=== PATIENT | male | born 1975 | race Caucasian/White ===

== ENCOUNTER 2017-04-17 19:49 | Emergency (ER) | payer OTHER ==
[2017-04-17] MEDS ORDERED: MOTRIN 600 MG ONE (20:16)
[2017-04-17] MEDS: MOTRIN 600 MG PO ONE (20:17)
--- NOTE | 2017-04-17 20:17 | ERPHSYRPT ---
- History of Present Illness Time Seen by Provider: 04/17/17 20:01 Source: patient Exam Limitations: no limitations Physician History: ABOUT 14 HOURS AGO AT PT'S RESIDENCE PT SLIPPED ON HIS ICY DECK AND FELL WITH RESULTANT RIGHT RIB PAIN AND RIGHT FOREARM PAIN; DENIES LOC, NAUSEA, VOMITING, ABDOMINAL PAIN, TINGLING/NUMBNESS, WEAKNESS. Allergies/Adverse Reactions: No Known Drug Allergies Allergy (Verified 04/17/17 20:13) Home Medications: Amlodipine Besylate 10 mg [Norvasc 10 MG] 10 mg PO DAILY 04/24/15 [History] Lamotrigine [Lamictal] 100 mg PO BID 04/24/15 [History] Lisinopril 40 mg PO DAILY 04/24/15 [History] Alprazolam 1 mg [Xanax 1 mg] 1 mg PO BID 04/17/17 [History] Hx Tetanus, Diphtheria Vaccination/Date Given: Yes (2013) Hx Influenza Vaccination/Date Given: No Hx Pneumococcal Vaccination/Date Given: No - Review of Systems Cardiac: Other (RIGHT RIB PAIN) Musculoskeletal: Other (RIGHT FOREARM PAIN) All Other Systems: Reviewed and Negative - Past Medical History Pertinent Past Medical History: Yes Neurological History: Seizures ENT History: No Pertinent History Cardiac History: No Pertinent History, Hypertension Respiratory History: No Pertinent History Endocrine Medical History: No Pertinent History Musculoskeletal History: Degenerative Disk Disease GI Medical History: Hernia History: No Pertinent History Psycho-Social History: Anxiety Male Reproductive Disorders: No Pertinent History Other Medical History: CHRONIC BACK PAIN - Past Surgical History Past Surgical History: Yes Neuro Surgical History: No Pertinent History Cardiac: No Pertinent History Respiratory: No Pertinent History Gastrointestinal: Hernia Repair Genitourinary: No Pertinent History Musculoskeletal: No Pertinent History Male Surgical History: No Pertinent History - Social History Smoking Status: Current some day smoker How long have you smoked: YRS Exposure to second hand smoke: Yes Alcohol Use: Socially Drug Use: none Patient Lives Alone: Yes Significant Family History: no pertinent family hx - Nursing Vital Signs Nursing Vital Signs: Initial Vital Signs Temperature 97.8 F 04/17/17 20:01 Pulse Rate 104 H 04/17/17 20:01 Respiratory Rate 18 04/17/17 20:01 Blood Pressure 139/90 04/17/17 20:01 O2 Sat by Pulse Oximetry 96 04/17/17 20:01 Pain Scale Pain Intensity 9 - [place] Coma Score Best Eye Response (Loulou): (4) open spontaneously Best Verbal Response ([place]): (5) oriented Best Motor Response ([place]): (6) obeys commands [place] Total: 15 - Physical Exam General Appearance: alert Head Injury: no evidence of injury Eye Exam: PERRL/EOMI ENT Exam: airway nml, nml ext.inspection Neck Exam: trachea midline, No tenderness Respiratory/Chest Exam: other (MILD RIGHT 9TH POSTERIOR RIB TENDERNESS WITHOUT CREPITUS OR BRUISING) Cardiovascular Exam: normal heart sounds Gastrointestinal Exam: soft, normal bowel sounds, No tenderness Back Exam: normal range of motion, No vertebral tenderness Extremity Exam: swelling (MILD TENDERNESS AND EDEMA OVER A ~ 3 CM DIAMETER ABRASION ON THE LATERAL ASPECT OF THE RIGHT FOREARM. FULL ROM OF ALL UPPER EXTREMITIES WITH GOOD CAPILLARY REFILL, SENSATION AND ROM OF ALL DIGITS OF BOTH HANDS.) Neurologic Exam: alert, cooperative Procedures - Splinting Location of Splint: Right, Forearm Type of Splint: Orthoglass Short Arm Splint Splint Applied By: ED Nurse Pre-Proc Neuro Vasc Exam: normal Post-Proc Neuro Vasc Exam: neurovascular intact, good alignment - Course Nursing assessment & vital signs reviewed: Yes - Radiology Exams Right Ribs X-ray Interpretation: Interpreted by me, No Fracture Right Forearm X-ray Interpretation: Interpreted by me (MID-SHAFT ULNAR FRACTURE) Ordered Tests: Active Orders 24 hr Category Date Time Status Sling Application STAT Care 04/17/17 20:09 Active Splint STAT Care 04/17/17 21:44 Active FOREARM Stat Exams 04/17/17 20:10 Ordered RIBS UNILATERAL Stat Exams 04/17/17 20:10 Ordered Medication Summary Discontinued Medications Generic Name Dose Route Start Last Admin Trade Name Freq PRN Reason Stop Dose Admin Hydrocodone Bitart/Acetaminophen 2 tab 04/17/17 21:43 Browns 5/325 Mg PO 04/17/17 21:44 STAT ONE Hydrocodone Bitart/Acetaminophen 2 tab 04/17/17 21:44 Browns 5/325 Mg PO 04/17/17 21:45 SENT HOME W/ PATIENT ONE Hydrocodone Bitart/Acetaminophen Confirm 04/17/17 21:50 Browns 5/325 Mg Administered 04/17/17 21:51 Dose 2 tab .ROUTE .STK-MED ONE Hydrocodone Bitart/Acetaminophen Confirm 04/17/17 21:50 Browns 5/325 Mg Administered 04/17/17 21:51 Dose 2 tab .ROUTE .STK-MED ONE Ibuprofen 600 mg 04/17/17 20:09 04/17/17 20:17 Motrin 600 Mg PO 04/17/17 20:10 600 mg STAT ONE Administration Ibuprofen Confirm 04/17/17 20:16 Motrin 600 Mg Administered 04/17/17 20:17 Dose 600 mg .ROUTE .STK-MED ONE - Progress Discussed with : Darshan ([address] RIGHT FOREARM IN SPLINT. PT TO GO TO OFFICE TOMORROW AT 1 PM.) - Departure Time of Disposition: 22:12 Departure Disposition: Home Clinical Impression: MID-SHAFT FRACTURE OF THE RIGHT ULNA, RIGHT MID BACK PAIN Condition: Stable Critical Care Time: No Referrals: JUAN LUIS ARCHULETA [Primary Care Provider] - Instructions: Forearm Fracture (DC) Additional Instructions: FOLLOW UP WITH DR HAILE(ORTHOPEDIC SURGEON) TOMORROW AT 1 PM. CALL HIS OFFICE AT 9 AM TOMORROW TO ARRANGE THE 1 PM APPOINTMENT([phone]). ELEVATE RIGHT ARM ABOVE HEART LEVEL AND KEEP SPLINT ON RIGHT FOREARM UNTIL DR HAILE IS SEEN TOMORROW. WEAR RIGHT ARM SLING FOR COMFORT.
[2017-04-17] MEDS ORDERED: NORCO 5/325 MG ONE ×2 (21:50)
[2017-04-17] MEDS: NORCO 5/325 MG PO ONE ×2 (22:19→22:20)
[2017-04-17 22:22] VITALS: BP 120/83; PULSE 92; O2SAT 95
--- NOTE | 2017-04-18 09:04 | XRAY ---
Indication: Pain following fall. Comparison: September 24, 2013. 2 views of the right ribs demonstrates old 09/10/10 rib fractures. No other bony, articular, or soft tissue abnormalities.
--- NOTE | 2017-04-18 09:06 | XRAY ---
Indication: Pain following fall. Comparison: None 2 views of the right forearm demonstrates mild displaced fracture involving the mid to distal shaft of the ulna with adjacent soft tissue swelling. No other bony, articular, or soft tissue abnormalities.
== END 2017-04-17 22:23 | disposition home or self-care (01) ==
LOC: ED 19:49
PROC: 2W3CX1Z Immobilization of Right Lower Arm using Splint (ICD-10-PCS; principal; 2017-04-17)
DX: S52.201A Unspecified fracture of shaft of right ulna, initial encounter for closed fracture (principal); W00.0XXA Fall on same level due to ice and snow, initial encounter; Y93.29 Activity, other involving ice and snow; Y92.89 Other specified places as the place of occurrence of the external cause; R07.81 Pleurodynia; M79.631 Pain in right forearm; G40.909 Epilepsy, unspecified, not intractable, without status epilepticus; I10 Essential (primary) hypertension; F41.9 Anxiety disorder, unspecified; Z72.0 Tobacco use
CPT/HCPCS: 29126; 71100; 73090; 99283; A9270-GY

== ENCOUNTER 2017-06-21 19:58 | Observation (INO) | payer OTHER ==
[2017-06-21] MEDS ORDERED: Sodium Chloride 0.9% 1000 ML 1,000 ML IV STA ×2 (20:42→21:57)
[2017-06-21] MEDS ORDERED: Keppra 500 MG/5 ML*** 500 MG in D5w 100ML Mini Bag 100 ML 100 ML IV ONE (20:46)
[2017-06-21] MEDS ORDERED: Sodium Chloride 0.9% 1000 ML 1,000 ML ONE ×2 (20:46→22:01)
--- NOTE | 2017-06-21 20:46 | ERPHSYRPT ---
- History of Present Illness Time Seen by Provider: 06/21/17 20:22 Source: patient, family Exam Limitations: clinical condition Patient Subjective Stated Complaint: has not been able to get a hold of Dr Sexton. family states he has had seizures today X2. arrived with splint long arm + radial pulse present. family upset because they could not get a hold of Dr Sexton. Triage Nursing Assessment: alert with muffled speech. sig other states has had 2 seizures tonight starting at 1500. has hx of seizures. has a fractured right arm that he has been dealing with an infection. splint in place. + pedal pulse on palpation. good movement and sensation to the right hand,. states the hand was swollen yesterday but improved after antibiotics. they are here because they have not been able to get a hold of Dr Sexton and was told that he didnt need to be admitted from [facility] last night. states there was drainage from the site last night. Physician History: PATIENT WITH A HISTORY OF SEIZURE DISORDER, HAD PROLONGED SEIZURE TODAY. DENIES TRAUMA OR INJURY. SUSTAINED FRACTURE TO RIGHT ULNA ON 04/17/2017, PLACEMENT OF HARDWARE, AND ON 06/13/2017 REQUIRED REMOVAL OR HARDWARE DUE TO INFECTION. PATIENT COMPLAINS OF PERSISTENT PAIN. DENIES FEVER OR CHILLS. Timing/Duration: day(s) Severity: moderate Character of Deficits: impaired speech Deficits: no difficulties Baseline/Normal Cognition: alert oriented x 3 Current Cognition: poor alertness Baseline Gait: walks w/o assistance Associated Symptoms: slurred speech Allergies/Adverse Reactions: No Known Drug Allergies Allergy (Verified 06/21/17 20:42) Home Medications: Amlodipine Besylate 10 mg [Norvasc 10 MG] 10 mg PO DAILY 04/24/15 [History] Lamotrigine [Lamictal] 100 mg PO BID 04/24/15 [History] Lisinopril 40 mg PO DAILY 04/24/15 [History] Alprazolam 1 mg [Xanax 1 mg] 1 mg PO BID 04/17/17 [History] Hx Tetanus, Diphtheria Vaccination/Date Given: Yes (2013) Hx Influenza Vaccination/Date Given: No Hx Pneumococcal Vaccination/Date Given: No Immunizations Up to Date: Yes - Review of Systems Constitutional: No Fever, No Chills Eyes: No Symptoms Ears, Nose, & Throat: No Symptoms Respiratory: No Symptoms, No Cough, No Dyspnea Cardiac: No Symptoms, No Chest Pain, No Edema, No Syncope Abdominal/Gastrointestinal: No Symptoms, No Abdominal Pain, No Nausea, No Vomiting, No Diarrhea Genitourinary Symptoms: No Symptoms, No Dysuria Musculoskeletal: No Back Pain, No Neck Pain Skin: No Rash Neurological: Seizure, No Dizziness, No Focal Weakness, No Sensory Changes Psychological: No Symptoms Endocrine: No Symptoms All Other Systems: Reviewed and Negative - Past Medical History Pertinent Past Medical History: Yes Neurological History: Seizures ENT History: No Pertinent History Cardiac History: No Pertinent History, Hypertension Respiratory History: No Pertinent History Endocrine Medical History: No Pertinent History Musculoskeletal History: Degenerative Disk Disease GI Medical History: Hernia History: No Pertinent History Psycho-Social History: Anxiety Male Reproductive Disorders: No Pertinent History Other Medical History: CHRONIC BACK PAIN - Past Surgical History Past Surgical History: Yes Neuro Surgical History: No Pertinent History Cardiac: No Pertinent History Respiratory: No Pertinent History Gastrointestinal: Hernia Repair Genitourinary: No Pertinent History Musculoskeletal: No Pertinent History Male Surgical History: No Pertinent History Other Surgical History: surgical repain of fx to right arm - Social History Smoking Status: Never smoker How long have you smoked: YRS Exposure to second hand smoke: No Alcohol Use: Socially Drug Use: none Patient Lives Alone: No Significant Family History: no pertinent family hx - Nursing Vital Signs Nursing Vital Signs: Initial Vital Signs Temperature 97.5 F 06/21/17 20:10 Pulse Rate 85 06/21/17 20:10 Respiratory Rate 18 06/21/17 20:10 Blood Pressure 163/91 06/21/17 20:10 O2 Sat by Pulse Oximetry 98 06/21/17 20:10 Pain Scale Pain Intensity 0 - [place] Coma Scale Best Eye Response ([place]ou): (4) open spontaneously Best Verbal Response ([place]): (5) oriented Best Motor Response ([place]): (6) obeys commands [place] Total: 15 - Physical Exam General Appearance: lethargy, other (GARBLED SPEECH, APPROPRIATE AND ORIENTED X 3 ) Eye Exam: bilateral eye: normal inspection, PERRL, EOMI Ears, Nose, Throat Exam: normal ENT inspection, moist mucous membranes Neck Exam: normal inspection, non-tender, supple Respiratory: normal breath sounds, lungs clear, airway intact, No respiratory distress Gastrointestinal: soft, normal bowel sounds, No tenderness, No distention Back Exam: normal inspection, normal range of motion Extremity Exam: limited range of motion, swelling (HEALING INCISIONAL WOUND RIGHT DISTAL 3RD FOREARM, WITH SWELLING, ERYTHEMA AND TENDERNESS, RIGHT RADIAL PULSE 2 +), tenderness heavy machinery assembler Exam: normal hearing (GARBLED SPEECH) Coordination/Gait: normal finger to nose, normal gait Motor/Sensory: no motor deficit, no sensory deficit, no pronator drift DTR: bicep (R): 2+, bicep (L): 2+, tricep (R): 2+, tricep (L): 2+, knee (R): 2+ , knee (L): 2+, ankle (R): 2+, ankle (L): 2+ Skin Exam: other (ERYTHEMA DISTAL RIGHT FOREARM) SpO2 Interpretation: normal SpO2: 98 Oxygen Delivery: Room Air - CT Exams Head CT Interpretation: Discussed w/radiologist (STABLE NEGATIVE HEAD CT) Ordered Tests: Active Orders 24 hr Category Date Time Status Statistician Applied STAT Care 06/21/17 21:58 Active IV Insertion STAT Care 06/21/17 20:42 Active FOREARM Stat Exams 06/21/17 20:56 Taken HEAD WITHOUT CONTRAST [CT] Stat Exams 06/21/17 20:44 Taken BLOOD CULTURE Stat Lab 06/21/17 21:00 Received BMP Stat Lab 06/21/17 20:50 Completed CBC W DIFF Stat Lab 06/21/17 20:50 Completed UA W/RFX UR CULTURE Stat Lab 06/21/17 20:44 Ordered Urine Triage Profile Stat Lab 06/21/17 20:44 Ordered Transfer Order Routine Transfer 06/21/17 Ordered Medication Summary Generic Name Dose Route Start Last Admin Trade Name Freq PRN Reason Stop Dose Admin Vancomycin HCl 1 gm in 250 mls @ 167 mls/hr 06/21/17 21:44 06/21/17 22:00 Vancomycin 1gm/ Ns 250ml IV 06/21/17 23:13 167 mls/hr STAT ONE Administration Sodium Chloride 1,000 mls @ 999 mls/hr 06/21/17 21:57 06/21/17 22:02 Sodium Chloride 0.9% 1000 Ml IV 06/21/17 22:57 999 mls/hr .Q1H1M STA Administration Discontinued Medications Generic Name Dose Route Start Last Admin Trade Name Freq PRN Reason Stop Dose Admin Sodium Chloride 1,000 mls @ 999 mls/hr 06/21/17 20:42 06/21/17 20:48 Sodium Chloride 0.9% 1000 Ml IV 06/21/17 21:42 999 mls/hr .Q1H1M STA Administration Sodium Chloride Confirm 06/21/17 20:46 Sodium Chloride 0.9% 1000 Ml Administered 06/21/17 20:47 Dose 1,000 mls @ ud .ROUTE .STK-MED ONE Levetiracetam 500 mg/ Dextrose 105 mls @ 400 mls/hr 06/21/17 20:46 06/21/17 21:02 IV 06/21/17 21:01 400 mls/hr STAT ONE Administration Dextrose Confirm 06/21/17 20:59 D5w 100ml Mini Bag 100 Ml Administered 06/21/17 21:00 Dose 100 mls @ ud IV .STK-MED ONE Vancomycin HCl Confirm 06/21/17 21:56 Vancomycin 1gm/ Ns 250ml Administered 06/21/17 21:57 Dose 250 mls @ ud IV .STK-MED ONE Sodium Chloride Confirm 06/21/17 22:01 Sodium Chloride 0.9% 1000 Ml Administered 06/21/17 22:02 Dose 1,000 mls @ ud .ROUTE .STK-MED ONE Levetiracetam Confirm 06/21/17 20:58 Keppra 500 Mg/5 Ml Administered 06/21/17 20:59 Dose 500 mg .ROUTE .STK-MED ONE Lab/Rad Data: Laboratory Result Diagrams 06/21/17 20:50 06/21/17 20:50 Laboratory Results 06/21/17 06/21/17 Range/Units 20:50 20:50 WBC 5.2 (4.0-10.5) K/mm3 RBC 4.61 (4.1-5.6) M/mm3 Hgb 13.6 (12.5-18.0) gm/dl Hct 41.8 L (42-50) % MCV 90.7 (78-100) fl MCH 29.5 (26-32) pg MCHC 32.5 (32-36) g/dl RDW 13.5 (11.5-14.0) % Plt Count 285 (150-450) K/mm3 MPV 10.7 H (6-9.5) fl Gran % 55.9 (36.0-66.0) % Eos # (Auto) 0.69 H (0-0.5) Absolute Lymphs (auto) 1.07 (1.0-4.6) Absolute Monos (auto) 0.49 (0.0-1.3) Lymphocytes % 20.6 L (24.0-44.0) % Monocytes % 9.4 (0.0-12.0) % Eosinophils % 13.3 H (0.00-5.0) % Basophils % 0.8 (0.0-0.4) % Absolute Granulocytes 2.90 (1.4-6.9) Basophils # 0.04 (0-0.4) Sodium 139 (137-145) mmol/L Potassium 4.4 (3.5-5.1) mmol/L Chloride 99 (98-107) mmol/L Carbon Dioxide 31 H (22-30) mmol/L Anion Gap 13.4 (5-15) MEQ/L BUN 12 (9-20) mg/dL Creatinine 0.86 (0.66-1.25) mg/dL Estimated GFR > 60.0 ML/MIN Glucose 91 (74-106) mg/dL Calcium 9.6 (8.4-10.2) mg/dL - Progress Progress Note: 06/21/17 21:43 IV BOLUS NORMAL SALINE 1 LITER/HR X 2 Discussed with DrBarb: Mannie (DISCUSSED WITH DR HARRINGTON AT 2200 FOR ADMISSION) - Departure Time of Disposition: 22:12 Departure Disposition: Observation Clinical Impression: SEIZURE DISORDER, CELLULITIS RIGHT FOREARM Condition: Stable Critical Care Time: No Referrals: JUAN LUIS ARCHULETA [Primary Care Provider] -
[2017-06-21 20:54] LABS: BASOPHIL % 0.8 % (0.0-0.4); Basophil (Absolute #) 0.04 (0-0.4); Eosinophil % 13.3 % (0.00-5.0); Eosinophil (Absolute #) 0.69 (0-0.5); Granulocytes % 55.9 % (36.0-66.0); Hematocrit 41.8 % (42-50); Hemoglobin 13.6 gm/dl (12.5-18.0); Lymphocyte (Absolute #) 1.07 (1.0-4.6); Lymphocytes % 20.6 % (24.0-44.0); Mean Cell Volume 90.7 fl (78-100); Mean Corpuscular Hemoglobin 29.5 pg (26-32); Mean Corpuscular Hgb Concent. 32.5 g/dl (32-36); Mean Platelet Volume 10.7 fl (6-9.5); Monocyte (Absolute #) 0.49 (0.0-1.3); Monocytes % 9.4 % (0.0-12.0); Platelet Count 285 K/mm3 (150-450); Red Blood Count 4.61 M/mm3 (4.1-5.6); Red Cell Distribution Width 13.5 % (11.5-14.0); White Blood Count 5.2 K/mm3 (4.0-10.5)
[2017-06-21] MEDS ORDERED: Keppra 500 MG/5 ML ONE (20:58)
[2017-06-21 20:59] LABS: ANION GAP 13.4 MEQ/L (5-15); BLOOD UREA NITROGEN 12 mg/dL (9-20); CHLORIDE 99 mmol/L (98-107); Calcium 9.6 mg/dL (8.4-10.2); Carbon Dioxide 31 mmol/L (22-30); Creatinine 1 0.86 mg/dL (0.66-1.25); Glucose 91 mg/dL (74-106); Potassium 4.4 mmol/L (3.5-5.1); SODIUM 139 mmol/L (137-145)
[2017-06-21] MEDS ORDERED: D5w 100ML Mini Bag 100 ML 100 ML IV ONE (20:59)
[2017-06-21] MEDS ORDERED: Vancomycin 1GM/ Ns 250ML*** 1 GM/250 ML IVPB IV ONE (21:44)
[2017-06-21] MEDS ORDERED: Vancomycin 1GM/ Ns 250ML*** 250 ML IV ONE (21:56)
[2017-06-21] MEDS ORDERED: Zofran 4 MG/2 ML VIAL IV PRN (22:48)
[2017-06-21] MEDS ORDERED: TYLENOL 325 MG PO PRN (22:48)
[2017-06-21] MEDS ORDERED: Sodium Chloride 0.9% 1000 ML 1,000 ML IV SCH (22:48)
[2017-06-21] MEDS ORDERED: VANCOCIN 1 GM VIAL*** 1 GM in Sodium Chloride 0.9% 250 ML 250 ML IV SCH (22:48)
[2017-06-21 22:54] LABS: Appearance CLEAR (CLEAR); Bilirubin NEGATIVE (NEGATIVE); Blood NEGATIVE Ery/ul (0-5); Glucose NEGATIVE (NEGATIVE); Ketones NEGATIVE (NEGATIVE); Leukocyte Esterase NEGATIVE (NEGATIVE); Nitrite NEGATIVE (NEGATIVE); Protein,Urine Dip NEGATIVE (Negative); Urobilinogen NORMAL mg/dL (0-1)
[2017-06-21 23:07] LABS: Barbiturate,Urine NEGATIVE (NEGATIVE); Benzodiazepine,Urine POSITIVE (NEGATIVE); Cocaine,Urine NEGATIVE (NEGATIVE); Methadone,Urine NEGATIVE (NEGATIVE); Opiate,Urine NEGATIVE (NEGATIVE); PCP,Urine NEGATIVE (NEGATIVE); THC,Urine POSITIVE (NEGATIVE)
[2017-06-21 23:53] LABS: Amphetamine,Urine POSITIVE (NEGATIVE)
[2017-06-22] MEDS: VANCOCIN 1 GM VIAL*** 1 GM in Sodium Chloride 0.9% 250 ML 250 ML IV SCH ×4 (07:59→23:28)
[2017-06-22] MEDS ORDERED: PHARMACY DOSING REQUIRED: VANCOMYCIN IV ONE (08:20)
--- NOTE | 2017-06-22 08:36 | XRAY ---
Indication: Seizure. Multiple contiguous axial images obtained through the head without contrast. Comparison: December 20, 2015. Again normal appearing brain parenchyma, ventricles, and bony calvarium. Minimal mucosal thickening of both ethmoid sinuses. Mastoid air cells are clear. Impression: Minimal paranasal sinus disease. Remaining CT head without contrast exam remains normal. CTDI 68.51
--- NOTE | 2017-06-22 08:42 | XRAY ---
Indication: Infected forearm. Comparison: June 13. 2 views of the right forearm using portable technique again demonstrates mild healing distal ulnar shaft fracture with minimally increased angulation/displacement possibly explained by difference in positioning though refracture not completely excluded in the right clinical setting. Stable soft tissue swelling and bony radiolucencies from previous hardware. No other bony, articular, or soft tissue abnormalities.
[2017-06-22] MEDS ORDERED: PAROXETINE HCL PO SCH (10:00)
[2017-06-22] MEDS ORDERED: XANAX 1 MG PO SCH (10:00)
[2017-06-22] MEDS: Flonase NASAL NS SCH (10:12)
[2017-06-22] MEDS: KEPPRA 500 MG PO SCH ×2 (10:12→21:20)
[2017-06-22] MEDS: Zestril 20 MG PO SCH (10:13)
[2017-06-22] MEDS: lamICTAL 100MG TABLET PO SCH ×2 (10:13→21:20)
[2017-06-22] MEDS: NORVASC 5 MG PO SCH (10:13)
[2017-06-22] MEDS: Paxil 20 MG PO SCH (10:14)
[2017-06-22] MEDS: ULTRAM 50 MG PO SCH ×2 (10:14→21:20)
[2017-06-22] MEDS: NORCO 5/325 MG PO PRN ×3 (10:20→21:28)
[2017-06-22] MEDS ORDERED: TORAdol 30 mg Injection IM PRN (17:22)
[2017-06-22] MEDS: XANAX 1 MG PO SCH ×2 (21:21)
[2017-06-22] MEDS ORDERED: VANCOCIN 1 GM VIAL*** 1 GM in Sodium Chloride 0.9% 250 ML 250 ML IV SCH (22:00)
[2017-06-23] MEDS ORDERED: TROUGH DRUG LEVELS IJ ONE (05:30)
[2017-06-23] MEDS: NORCO 5/325 MG PO PRN ×3 (05:45→15:59)
[2017-06-23 06:06] LABS: BASOPHIL % 0.6 % (0.0-0.4); Basophil (Absolute #) 0.03 (0-0.4); Eosinophil % 7.6 % (0.00-5.0); Eosinophil (Absolute #) 0.39 (0-0.5); Granulocyte Absolute (ANC) 3.61 (1.4-6.9); Granulocytes % 69.9 % (36.0-66.0); Hematocrit 38.4 % (42-50); Hemoglobin 12.5 gm/dl (12.5-18.0); Lymphocyte (Absolute #) 0.65 (1.0-4.6); Lymphocytes % 12.6 % (24.0-44.0); Mean Cell Volume 89.9 fl (78-100); Mean Corpuscular Hemoglobin 29.3 pg (26-32); Mean Corpuscular Hgb Concent. 32.6 g/dl (32-36); Mean Platelet Volume 10.5 fl (6-9.5); Monocyte (Absolute #) 0.48 (0.0-1.3); Monocytes % 9.3 % (0.0-12.0); Platelet Count 256 K/mm3 (150-450); Red Blood Count 4.27 M/mm3 (4.1-5.6); Red Cell Distribution Width 13.4 % (11.5-14.0); White Blood Count 5.2 K/mm3 (4.0-10.5)
[2017-06-23 06:16] LABS: ALBUMIN 3.6 g/dL (3.5-5.0); ALKALINE PHOSPHATASE 77 U/L (38-126); ANION GAP 12.4 MEQ/L (5-15); BILIRUBIN,TOTAL < 0.10 mg/dL (0.2-1.3); BLOOD UREA NITROGEN 7 mg/dL (9-20); CHLORIDE 101 mmol/L (98-107); Carbon Dioxide 27 mmol/L (22-30); Creatinine 1 0.71 mg/dL (0.66-1.25); Glucose 107 mg/dL (74-106); Potassium 3.8 mmol/L (3.5-5.1); SGOT/AST 22 U/L (17-59); SGPT/ALT 24 U/L (0-50); SODIUM 136 mmol/L (137-145); Total Protein 6.4 g/dL (6.3-8.2)
[2017-06-23] MEDS: VANCOCIN 1 GM VIAL*** 1 GM in Sodium Chloride 0.9% 250 ML 250 ML IV SCH ×2 (07:17→12:11)
[2017-06-23] MEDS: ULTRAM 50 MG PO SCH (08:58)
[2017-06-23] MEDS: KEPPRA 500 MG PO SCH (08:58)
[2017-06-23] MEDS: NORVASC 5 MG PO SCH (08:58)
[2017-06-23] MEDS: Paxil 20 MG PO SCH (08:58)
[2017-06-23] MEDS: lamICTAL 100MG TABLET PO SCH (08:58)
[2017-06-23] MEDS: Zestril 20 MG PO SCH (08:59)
[2017-06-23] MEDS: Flonase NASAL NS SCH (08:59)
[2017-06-23] MEDS: XANAX 1 MG PO SCH (08:59)
--- NOTE | 2017-06-23 09:30 | HP ---
CHIEF COMPLAINT: 1) Seizure. 2) Fracture left ulna. 3) Infection in the wound site. HISTORY OF PRESENT ILLNESS: The patient is a 41 year-old white male patient who has had bouts with fracture of his left ulna. Apparently he had a plate in. They removed the screws and apparently he has gotten an infection at this time. He had been placed on amoxicillin. He apparently went to the emergency room at [facility] for complaints of wound infection. Apparently they felt that Dr. Sexton wished him to be admitted to [facility]. He was sent to the emergency room there and evaluated but then sent away. He presented himself to our emergency room after being upset with the events. He apparently had two seizures which in my mind could well have been pseudoseizures. However he was placed in observation in our facility due to the seizures and for continued treatment of his reported infection at the wound site from his fracture. PAST MEDICAL/SURGICAL HISTORY: Significant for anxiety and depression issues. HOME MEDICATIONS: Includes amlodipine 10 mg, Lamictal 100 mg b.i.d., lisinopril 40 mg a day, Alprazolam 1 mg b.i.d. ALLERGIES: NKDA. PHYSICAL EXAMINATION: Revealed a well nourished, well developed 41 year-old white male patient in no obvious distress. His vital signs recently have shown temperature 97.3F, pulse 94, respiratory rate 18, blood pressure 118/59. O2 saturation 97% on room air. HEENT: Normocephalic, atraumatic. Pupils equal round reactive to light. Extraocular movements intact. Oropharynx is pink and moist. NECK: Supple without lymphadenopathy, thyromegaly or JVD. CHEST: Clear to auscultation. HEART: Regular rate and rhythm without murmurs, rubs or gallops. ABDOMEN: Soft, nontender, nondistended without hepatosplenomegaly or masses. EXTREMITIES: Revealed the right arm to be in a sling. After unwrapping it the wound site appears to be fairly clean with Prolene sutures apparently still in the wound site but the wound site appears to be fairly clear. NEUROLOGIC: Appears to be intact. He has had no further episodes of seizures since his admission. LAB DATA AND TESTS: The patient's x-rays showed stable tissue swelling, bony radial lucency from previous hardware. There appears to be mild healing of distal ulnar shaft fracture with minimally increased angulation and displacement possibly explained by difference in position. No knot completely excluded for refracture. He had CT scan of the head which was essentially normal. His laboratory studies showed his hemoglobin 12.5, white blood cell count 5,200, PLT count 256,000. Glucose 107, BUN 7, creatinine 0.71. Electrolytes were normal. Liver enzymes were normal. His urine drug screen however did come back positive for amphetamines for which he had no explanation, benzodiazepine was positive, THC was also positive. ASSESSMENT: The patient has been admitted to the hospital. He is on IV Vancomycin. We received an EEG which has thus far been negative for evidence of seizure focus. We are awaiting Dr. Riccardo Sexton to come evaluate his wound and instruct us on further treatment. At the present time he is on Vancomycin pending culture as well as from the previous hospitalizations at [facility].
[2017-06-23 15:57] VITALS: BP 142/80; PULSE 86; O2SAT 99
== END 2017-06-23 17:00 | disposition home health service (06) ==
LOC: ED 19:58 → MED SURG 22:43
PROVIDERS: ADMIT Family Medicine; ATTEND Family Medicine
DX: R56.9 Unspecified convulsions (principal); S52.202S Unspecified fracture of shaft of left ulna, sequela; M96.672 Fracture of tibia or fibula following insertion of orthopedic implant, joint prosthesis, or bone plate, left leg; Y83.4 Other reconstructive surgery as the cause of abnormal reaction of the patient, or of later complication, without mention of misadventure at the time of the procedure; Y79.8 Miscellaneous orthopedic devices associated with adverse incidents, not elsewhere classified; F41.8 Other specified anxiety disorders; Z79.899 Other long term (current) drug therapy; F15.90 Other stimulant use, unspecified, uncomplicated
CPT/HCPCS: 36000; 36415; 70450; 73090; 80048; 80053; 80175; 80202; 80307; 81002; 85025; 87040; 93041; 93268; 94760; 95812; 99285; J1953; J3370; A9270-GY; G0378

== ENCOUNTER 2017-08-17 12:01 | Emergency (ER) | payer OTHER ==
[2017-08-17] MEDS ORDERED: Vancomycin 1GM/ Ns 250ML*** 250 ML IV ONE ×2 (12:36→12:56)
[2017-08-17] MEDS ORDERED: Sodium Chloride 0.9% 1000 ML 1,000 ML IV STA ×3 (12:36→14:43)
[2017-08-17] MEDS ORDERED: Zofran 4 MG/2 ML VIAL IV ONE (12:38)
[2017-08-17] MEDS ORDERED: MORPHINE SULFATE 4 MG INJ IV ONE (12:38)
--- NOTE | 2017-08-17 12:42 | ERPHSYRPT ---
- History of Present Illness Time Seen by Provider: 08/17/17 12:32 Source: patient Exam Limitations: no limitations Patient Subjective Stated Complaint: Sent to ED from wound care due to hypotension Triage Nursing Assessment: Pt presents to the ED from Wound care, post wound care treatment, due to hypotension. Pt states he is tired, but denies other complaints. Pt is being seen by wound care for wound to right forearm. Pt states he finished his wound care visit prior to being sent to ED. No distress noted, skin PWD. Physician History: 42 y/o male comes sent to the ER for hypotension from the wound clinic. In April, patient had a fracture of the right forearm, had a plate placed, which was removed because of sepsis. The mother says that the area on the right forearm is more swollen, red and warm to touch. The area was packed today as well. Pt arrives with a SBP in the 70's. Pt admits to having dizziness and nausea. Timing/Duration: today Severity: moderate Modifying Factors: Improves With: movement Associated Symptoms: nausea, weakness Allergies/Adverse Reactions: No Known Drug Allergies Allergy (Verified 06/21/17 20:42) Home Medications: Amlodipine Besylate 10 mg [Norvasc 10 MG] 10 mg PO DAILY 04/24/15 [History] Lamotrigine [Lamictal] 100 mg PO BID 04/24/15 [History] Lisinopril 40 mg PO DAILY 04/24/15 [History] Fluticasone Propionate [Flonase NASAL] 16 gm NS DAILY 06/21/17 [History] Paroxetine HCl 1 tablet PO DAILY 06/21/17 [History] Testosterone Cypionate 200 mg IM UD 06/21/17 [History] Hx Tetanus, Diphtheria Vaccination/Date Given: Yes Hx Influenza Vaccination/Date Given: Yes Hx Pneumococcal Vaccination/Date Given: Yes Immunizations Up to Date: Yes - Review of Systems Constitutional: No Fever, No Chills Eyes: No Symptoms Ears, Nose, & Throat: No Symptoms Respiratory: No Cough, No Dyspnea Cardiac: No Chest Pain, No Edema, No Syncope Abdominal/Gastrointestinal: No Abdominal Pain, No Nausea, No Vomiting, No Diarrhea Genitourinary Symptoms: No Dysuria Musculoskeletal: Myalgias, No Back Pain, No Neck Pain Skin: No Rash Neurological: No Dizziness, No Focal Weakness, No Sensory Changes Psychological: No Symptoms Endocrine: No Symptoms All Other Systems: Reviewed and Negative - Past Medical History Pertinent Past Medical History: Yes Neurological History: Seizures ENT History: No Pertinent History Cardiac History: No Pertinent History, Hypertension Respiratory History: No Pertinent History Endocrine Medical History: No Pertinent History Musculoskeletal History: Degenerative Disk Disease, Fractures GI Medical History: Hernia History: No Pertinent History Psycho-Social History: Anxiety Male Reproductive Disorders: No Pertinent History Other Medical History: CHRONIC BACK PAIN - Past Surgical History Past Surgical History: Yes Neuro Surgical History: No Pertinent History Cardiac: No Pertinent History Respiratory: No Pertinent History Gastrointestinal: Hernia Repair Genitourinary: No Pertinent History Musculoskeletal: No Pertinent History Male Surgical History: No Pertinent History Other Surgical History: surgical repain of fx to right arm. hardware removal right arm. and I&D with antibiotic bead placement - Social History Smoking Status: Current every day smoker How long have you smoked: 2 years Exposure to second hand smoke: Yes Alcohol Use: Socially Drug Use: none Patient Lives Alone: No Significant Family History: no pertinent family hx - Nursing Vital Signs Nursing Vital Signs: Initial Vital Signs Temperature 97.4 F 08/17/17 12:19 Pulse Rate 95 H 08/17/17 12:19 Respiratory Rate 16 08/17/17 12:19 Blood Pressure 92/57 08/17/17 12:19 O2 Sat by Pulse Oximetry 97 08/17/17 12:19 Pain Scale Pain Intensity 0 - Physical Exam General Appearance: no apparent distress, alert Eye Exam: PERRL/EOMI, eyes nml inspection Ears, Nose, Throat Exam: normal ENT inspection, TMs normal, pharynx normal, moist mucous membranes Neck Exam: normal inspection, non-tender, supple, full range of motion Respiratory Exam: normal breath sounds, lungs clear, No respiratory distress Cardiovascular Exam: regular rate/rhythm, normal heart sounds, normal peripheral pulses Gastrointestinal/Abdomen Exam: soft, normal bowel sounds, No tenderness, No mass Back Exam: normal inspection, normal range of motion, No CVA tenderness, No vertebral tenderness Extremity Exam: normal inspection, normal range of motion, pelvis stable, limited range of motion, swelling, tenderness Neurologic Exam: alert, oriented x 3, cooperative, normal mood/affect, nml cerebellar function, nml station & gait, sensation nml, No motor deficits Skin Exam: normal color, warm, dry, No rash Lymphatic Exam: No adenopathy SpO2: 97 Oxygen Delivery: Room Air - Course Nursing assessment & vital signs reviewed: Yes EKG Interpreted by Me: RATE, NORMAL AXIS, NORMAL INTERVALS, NORMAL QRS, NORMAL ST-T Ordered Tests: Active Orders 24 hr Category Date Time Status EKG-ER Only STAT Care 08/17/17 12:39 Active IV Insertion STAT Care 08/17/17 12:36 Active CHEST 1 VIEW (PORTABLE) Stat Exams 08/17/17 12:36 Completed UPPER EXTREMITY W/O CONTRAST [CT] Stat Exams 08/17/17 12:37 Completed BLOOD CULTURE Stat Lab 08/17/17 12:54 Received CBC W DIFF Stat Lab 08/17/17 12:54 Completed CK-Creatinine Phosphokinase Stat Lab 08/17/17 12:54 Completed CMP Stat Lab 08/17/17 12:54 Completed CULTURE,URINE Stat Lab 08/17/17 15:10 Ordered CULTURE,WOUND Routine Lab 08/17/17 13:53 Received Lactic Acid Stat Lab 08/17/17 12:36 Completed Manual Differential NC Stat Lab 08/17/17 12:54 Completed TROPONIN Q3H Lab 08/17/17 12:54 Completed TROPONIN Q3H Lab 08/17/17 16:45 Ordered TROPONIN Q3H Lab 08/17/17 19:45 Ordered TROPONIN Q3H Lab 08/17/17 22:45 Ordered TROPONIN Q3H Lab 08/18/17 01:45 Ordered UA Stat Lab 08/17/17 15:10 Ordered Medication Summary Generic Name Dose Route Start Last Admin Trade Name Freq PRN Reason Stop Dose Admin Sodium Chloride 1,000 mls @ 999 mls/hr 08/17/17 14:43 08/17/17 15:09 Sodium Chloride 0.9% 1000 Ml IV 08/17/17 15:43 999 mls/hr .Q1H1M STA Administration Piperacillin Sod/Tazobactam Sod 3.375 gm in 100 mls @ 200 mls/hr 08/17/17 14: 57 08/17/17 15:09 Zosyn 3.375gm/100 Ml D5w IV 08/17/17 15:26 100 ml/hr STAT STA 100 mls/hr Administration Discontinued Medications Generic Name Dose Route Start Last Admin Trade Name Freq PRN Reason Stop Dose Admin Sodium Chloride 1,000 mls @ 999 mls/hr 08/17/17 12:36 08/17/17 12:59 Sodium Chloride 0.9% 1000 Ml IV 08/17/17 13:36 999 mls/hr .Q1H1M STA Administration Vancomycin HCl 250 mls @ 167 mls/hr 08/17/17 12:36 08/17/17 13:00 Vancomycin 1gm/ Ns 250ml IV 08/17/17 14:05 167 mls/hr STAT ONE Administration Sodium Chloride Confirm 08/17/17 12:56 Sodium Chloride 0.9% 1000 Ml Administered 08/17/17 12:57 Dose 1,000 mls @ ud .ROUTE .STK-MED ONE Vancomycin HCl Confirm 08/17/17 12:56 Vancomycin 1gm/ Ns 250ml Administered 08/17/17 12:57 Dose 250 mls @ ud IV .STK-MED ONE Sodium Chloride 1,000 mls @ 999 mls/hr 08/17/17 13:44 08/17/17 13:59 Sodium Chloride 0.9% 1000 Ml IV 08/17/17 14:44 999 mls/hr .Q1H1M STA Administration Sodium Chloride Confirm 08/17/17 13:58 Sodium Chloride 0.9% 1000 Ml Administered 08/17/17 13:59 Dose 1,000 mls @ ud .ROUTE .STK-MED ONE Sodium Chloride Confirm 08/17/17 15:00 Sodium Chloride 0.9% 1000 Ml Administered 08/17/17 15:01 Dose 1,000 mls @ ud .ROUTE .STK-MED ONE Piperacillin Sod/Tazobactam Sod Confirm 08/17/17 15:00 Zosyn 3.375gm/100 Ml D5w Administered 08/17/17 15:01 Dose 3.375 gm in 100 mls @ ud IV .STK-MED ONE Morphine Sulfate 4 mg 08/17/17 12:38 08/17/17 13:01 Morphine Sulfate 4 Mg Inj IV 08/17/17 12:39 4 mg STAT ONE Administration Morphine Sulfate Confirm 08/17/17 12:56 Morphine Sulfate 4 Mg Inj Administered 08/17/17 12:57 Dose 4 mg .ROUTE .STK-MED ONE Ondansetron HCl 4 mg 08/17/17 12:38 08/17/17 13:00 Zofran 4 Mg/2 Ml Vial IV 08/17/17 12:39 4 mg STAT ONE Administration Ondansetron HCl Confirm 08/17/17 12:56 Zofran 4 Mg/2 Ml Vial Administered 08/17/17 12:57 Dose 4 mg .ROUTE .STK-MED ONE Lab/Rad Data: Laboratory Result Diagrams 08/17/17 12:54 08/17/17 12:54 Laboratory Results 08/17/17 08/17/17 08/17/17 Range/Units 12:54 12:54 12:54 WBC (4.0-10.5) K/mm3 RBC (4.1-5.6) M/mm3 Hgb (12.5-18.0) gm/dl Hct (42-50) % MCV (78-100) fl MCH (26-32) pg MCHC (32-36) g/dl RDW (11.5-14.0) % Plt Count (150-450) K/mm3 MPV (6-9.5) fl Absolute Granulocytes (1.4-6.9) Segmented Neutrophils (36.-66.) % Lymphocytes (Manual) (24-44) % Monocytes (Manual) (0.0-12.0) % Basophils (Manual) (0.0-1.0) % Platelet Estimate (NORMAL) RBC Morphology Sodium 138 (137-145) mmol/L Potassium 4.7 (3.5-5.1) mmol/L Chloride 98 (98-107) mmol/L Carbon Dioxide 20 L (22-30) mmol/L Anion Gap 24.6 H (5-15) MEQ/L BUN 58 H (9-20) mg/dL Creatinine 5.61 H (0.66-1.25) mg/dL Estimated GFR 12.0 ML/MIN Glucose 135 H (74-106) mg/dL Lactic Acid (0.4-2.0) Calcium 9.7 (8.4-10.2) mg/dL Total Bilirubin 0.90 (0.2-1.3) mg/dL AST 29 (17-59) U/L ALT 27 (0-50) U/L Alkaline Phosphatase 117 (38-126) U/L Creatine Kinase 520 H (55-170) U/L Troponin I < 0.012 (0.000-0.034) ng/mL Serum Total Protein 7.5 (6.3-8.2) g/dL Albumin 4.5 (3.5-5.0) g/dL 08/17/17 08/17/17 Range/Units 12:54 12:36 WBC 13.9 H (4.0-10.5) K/mm3 RBC 4.77 (4.1-5.6) M/mm3 Hgb 13.9 (12.5-18.0) gm/dl Hct 40.5 L (42-50) % MCV 84.9 (78-100) fl MCH 29.1 (26-32) pg MCHC 34.3 (32-36) g/dl RDW 14.1 H (11.5-14.0) % Plt Count 251 (150-450) K/mm3 MPV 10.7 H (6-9.5) fl Absolute Granulocytes 10.88 H (1.4-6.9) Segmented Neutrophils 77 H (36.-66.) % Lymphocytes (Manual) 14 L (24-44) % Monocytes (Manual) 8 (0.0-12.0) % Basophils (Manual) 1 (0.0-1.0) % Platelet Estimate NORMAL (NORMAL) RBC Morphology NORMAL Sodium (137-145) mmol/L Potassium (3.5-5.1) mmol/L Chloride (98-107) mmol/L Carbon Dioxide (22-30) mmol/L Anion Gap (5-15) MEQ/L BUN (9-20) mg/dL Creatinine (0.66-1.25) mg/dL Estimated GFR ML/MIN Glucose (74-106) mg/dL Lactic Acid 0.9 (0.4-2.0) Calcium (8.4-10.2) mg/dL Total Bilirubin (0.2-1.3) mg/dL AST (17-59) U/L ALT (0-50) U/L Alkaline Phosphatase (38-126) U/L Creatine Kinase (55-170) U/L Troponin I (0.000-0.034) ng/mL Serum Total Protein (6.3-8.2) g/dL Albumin (3.5-5.0) g/dL - Progress Progress: improved Progress Note: 08/17/17 14:[address] upper extremity shows soft tissue swelling with tiny subcutaneous air bubble for which gas forming infection not completely excluded. The patient has received 2 bags of NS fluids but his SBP is still in the 90's. The patient has received vancomycin and will also get zosyn for possible sepsis and possible necrotizing fasciitis. The creatinine is over 5 which is new for this patient. Pt will require surgical intervention and we have placed a call to his orthopedic surgeon, Dr Sexton. 08/17/17 15:02 As per his office, as of 08/10, patient will no longer be seen in his office due to noncompliance. 08/17/17 15:13 Pt has been accepted by ER physician Dr [facility]. - Departure Time of Disposition: 15:14 Departure Disposition: Transfer Clinical Impression: Sepsis affecting skin Condition: Fair Critical Care Time: Yes Critical Care Time(excluding separately billable procedures): 75-104 minutes Referrals: JUAN LUIS ARCHULETA [Primary Care Provider] -
[2017-08-17] MEDS ORDERED: Zofran 4 MG/2 ML VIAL ONE (12:56)
[2017-08-17] MEDS ORDERED: MORPHINE SULFATE 4 MG INJ ONE (12:56)
[2017-08-17] MEDS ORDERED: Sodium Chloride 0.9% 1000 ML 1,000 ML ONE ×3 (12:56→15:00)
[2017-08-17 12:57] LABS: Granulocyte Absolute (ANC) 10.88 (1.4-6.9); Hematocrit 40.5 % (42-50); Hemoglobin 13.9 gm/dl (12.5-18.0); Mean Cell Volume 84.9 fl (78-100); Mean Corpuscular Hemoglobin 29.1 pg (26-32); Mean Corpuscular Hgb Concent. 34.3 g/dl (32-36); Mean Platelet Volume 10.7 fl (6-9.5); Platelet Count 251 K/mm3 (150-450); Red Blood Count 4.77 M/mm3 (4.1-5.6); Red Cell Distribution Width 14.1 % (11.5-14.0); White Blood Count 13.9 K/mm3 (4.0-10.5)
[2017-08-17 13:24] LABS: ALBUMIN 4.5 g/dL (3.5-5.0); ANION GAP 24.6 MEQ/L (5-15); BILIRUBIN,TOTAL 0.9 mg/dL (0.2-1.3); Calcium 9.7 mg/dL (8.4-10.2); Creatinine 1 5.61 mg/dL (0.66-1.25); Potassium 4.7 mmol/L (3.5-5.1); Total Protein 7.5 g/dL (6.3-8.2)
--- NOTE | 2017-08-17 14:13 | XRAY ---
Indication: Patient unresponsive. Possible sepsis. Comparison: None Portable chest demonstrates normal heart, lungs, and bony thorax.
--- NOTE | 2017-08-17 14:21 | XRAY ---
Indication: Possible sepsis. Multiple contiguous axial images obtained through the right forearm. 2-dimensional sagittal and coronal reformatted images obtained. Comparison: None. There is a recent right forearm radiograph August 10, 2017. Distal ulnar shaft demonstrates nondisplaced comminuted partial healing fracture with bridging callus formation present. Multiple transverse radiolucencies proximal and distal to the fracture are associated with old fixation hardware. There is adjacent cutaneous and subcutaneous soft tissue swelling/edema with small open wound just medial to the fracture. Also tiny subcutaneous air bubble for which gas-forming infection not completely excluded. No other bony, articular, or soft tissue abnormalities. Impression: Distal ulnar shaft partial healing fracture with adjacent soft tissue swelling. Appearance is grossly unchanged with respect to recent radiograph. Soft tissue swelling also demonstrates tiny subcutaneous air bubble for which gas-forming infection not completely excluded in the right clinical setting. CT DI 37.17
[2017-08-17 14:57] VITALS: O2SAT 97
[2017-08-17] MEDS ORDERED: Zosyn 3.375GM/100 Ml D5W 3.375 GM/100 ML IVPB IV STA (14:57)
[2017-08-17] MEDS ORDERED: Zosyn 3.375GM/100 Ml D5W 3.375 GM/100 ML IVPB IV ONE (15:00)
[2017-08-17 15:09] LABS: Basophil 1 % (0.0-1.0); Lymphocytes 14 % (24-44); Monocyte 8 % (0.0-12.0); Neutrophils 77 % (36.-66.); Platelet Estimate NORMAL (NORMAL)
[2017-08-17 15:11] VITALS: BP 95/46; PULSE 85
[2017-08-17 15:26] LABS: Appearance CLOUDY (CLEAR); Bacteria MODERATE /HPF (NEGATIVE); Bilirubin NEGATIVE (NEGATIVE); Blood 50 Ery/ul (0-5); Epithelial Cells FEW /HPF (FEW); Glucose NEGATIVE (NEGATIVE); Ketones NEGATIVE (NEGATIVE); Leukocyte Esterase 1+ (NEGATIVE); Mucus MODERATE /HPF (NEGATIVE); Nitrite NEGATIVE (NEGATIVE); Protein,Urine Dip 1+ (Negative); RBC 0-2 /HPF (0-2); Urobilinogen NORMAL mg/dL (0-1)
== END 2017-08-17 15:52 | disposition short-term general hospital (02) ==
LOC: ED 12:01
DX: L02.413 Cutaneous abscess of right upper limb (principal); I95.9 Hypotension, unspecified; R42 Dizziness and giddiness; R11.0 Nausea; Z79.899 Other long term (current) drug therapy
CPT/HCPCS: 36000; 36415; 51702; 71045; 73200; 80053; 81000; 82550; 83605; 84484; 85025; 87040; 87070; 87077; 87086; 87186; 93005; 96360; 96374; 96375; 99285; J2270; J2405; J2543; J3370

== ENCOUNTER 2017-09-29 11:37 | Emergency (ER) | payer OTHER ==
--- NOTE | 2017-09-29 12:23 | ERPHSYRPT ---
- History of Present Illness Time Seen by Provider: 09/29/17 12:18 Source: patient, family (mother) Exam Limitations: no limitations Patient Subjective Stated Complaint: pt alert, walked in , is a poor historian, resp easy, skin w/d/p. has picc line to left arm, and has healed incison to right arm Triage Nursing Assessment: pt here for a seizures off and on for 2 weeks with falls, and not feeling well,pt has picc line for antibotics for and infected right arm,pt also states vomiting daily. Physician History: The patient is a 42-year-old male with his mother complaining of being dizzy, falling, possible seizures, and vomiting for about 2 weeks. He is a very poor historian. His mother provides some of the history. She does not live near him area and she lives in [place]. The patient had surgery to his right forearm in April. The surgical site became infected. Since that time he tells me he's had 7 surgeries and still is planning to have maybe one more. For the past 5 weeks he has been on antibiotics through a PICC line 3 times a day of Cefzil and 2 g. He does the antibiotics at home. His brother helps him. He usually receives his weekly antibiotics on . He did not receive any yesterday, , and thinks he may be done with the antibiotics but does not know. He started vomiting about one week ago. He states he hasn' t had anything to eat or drink for 2 or 3 days because of the vomiting. When he stands up, he several times gets dizzy. This sometimes happens daily for the past week. He has fallen a few times on his left side and back. He denies shortness of breath or chest pain. His past medical history significant for hypertension, seizures, hernia repair, and right forearm surgeries. Timing/Duration: week(s) (2) Severity: moderate Modifying Factors: Improves With: nothing Associated Symptoms: nausea, vomiting Allergies/Adverse Reactions: No Known Drug Allergies Allergy (Verified 09/29/17 11:52) Home Medications: Amlodipine Besylate 10 mg [Norvasc 10 MG] 10 mg PO DAILY 04/24/15 [History] Lamotrigine [Lamictal] 100 mg PO BID 04/24/15 [History] Lisinopril 40 mg PO DAILY 04/24/15 [History] Fluticasone Propionate [Flonase NASAL] 16 gm NS DAILY 06/21/17 [History] Paroxetine HCl 1 tablet PO DAILY 06/21/17 [History] Testosterone Cypionate 200 mg IM UD 06/21/17 [History] Alprazolam 1 mg [Xanax 1 mg] 1 mg BID 09/29/17 [History] Hx Tetanus, Diphtheria Vaccination/Date Given: Yes Hx Influenza Vaccination/Date Given: No Hx Pneumococcal Vaccination/Date Given: No Immunizations Up to Date: Yes - Review of Systems Constitutional: Lethargy, Weakness Eyes: No Symptoms Ears, Nose, & Throat: No Symptoms Respiratory: No Cough, No Dyspnea Abdominal/Gastrointestinal: Nausea, Vomiting, No Diarrhea Genitourinary Symptoms: No Dysuria Musculoskeletal: Fall, Injury Skin: No Rash Neurological: Seizure, No Dizziness, No Focal Weakness, No Sensory Changes Psychological: No Symptoms Endocrine: No Symptoms Hematologic/Lymphatic: No Symptoms Immunological/Allergic: No Symptoms All Other Systems: Reviewed and Negative - Past Medical History Pertinent Past Medical History: Yes Neurological History: Seizures ENT History: No Pertinent History Cardiac History: No Pertinent History, Hypertension Respiratory History: No Pertinent History Endocrine Medical History: No Pertinent History Musculoskeletal History: Degenerative Disk Disease, Fractures GI Medical History: Hernia History: No Pertinent History Psycho-Social History: Anxiety Male Reproductive Disorders: No Pertinent History Other Medical History: CHRONIC BACK PAIN, infection to right arm in 2018 - Past Surgical History Past Surgical History: Yes Neuro Surgical History: No Pertinent History Cardiac: No Pertinent History Respiratory: No Pertinent History Gastrointestinal: Hernia Repair Genitourinary: No Pertinent History Musculoskeletal: No Pertinent History Male Surgical History: No Pertinent History Other Surgical History: surgical repain of fx to right arm. hardware removal right arm. and I&D with antibiotic bead placement - Social History Smoking Status: Former smoker How long have you smoked: 2 years Exposure to second hand smoke: No Alcohol Use: Socially Drug Use: none Patient Lives Alone: No Significant Family History: no pertinent family hx - Nursing Vital Signs Nursing Vital Signs: Initial Vital Signs Pulse Rate 89 09/29/17 11:40 Respiratory Rate 16 09/29/17 11:40 Blood Pressure 111/62 09/29/17 11:40 O2 Sat by Pulse Oximetry 98 09/29/17 11:40 Pain Scale Pain Intensity 8 - Physical Exam General Appearance: lethargy Eye Exam: PERRL/EOMI, eyes nml inspection Ears, Nose, Throat Exam: TMs normal, pharynx normal, moist mucous membranes, dry mucous membranes Neck Exam: normal inspection, non-tender, supple, full range of motion Respiratory Exam: normal breath sounds, lungs clear, No respiratory distress Cardiovascular Exam: regular rate/rhythm, normal heart sounds, normal peripheral pulses Gastrointestinal/Abdomen Exam: soft, normal bowel sounds, No tenderness, No mass Rectal Exam: not done Back Exam: normal inspection, normal range of motion, No CVA tenderness, No vertebral tenderness Extremity Exam: normal inspection, normal range of motion, pelvis stable Neurologic Exam: alert, oriented x 3, cooperative, normal mood/affect, nml cerebellar function, nml station & gait, sensation nml, No motor deficits Skin Exam: normal color, warm, dry, No rash Lymphatic Exam: No adenopathy SpO2 Interpretation: normal SpO2: 98 Oxygen Delivery: Room Air - Radiology Exams Chest X-ray Interpretation: Reviewed by me, Teleradiologist Report (per Dr Tsang), Non- displaced Fracture (left 10th rib) Left Ribs X-ray Interpretation: Reviewed by me, Teleradiologist Report (per Dr Tsang), Non- displaced Fracture (left 10th rib) Abdomen X-ray Interpretation: Reviewed by me, Teleradiologist Report (per Dr Tsang), Non- displaced Fracture (left 10th rib) Ordered Tests: Active Orders 24 hr Category Date Time Status Clean Catch Urine Specimen STAT Care 09/29/17 12:24 Active IV Insertion STAT Care 09/29/17 12:24 Active CHEST 2 VIEWS (PA AND LAT) Stat Exams 09/29/17 12:26 Completed KUB Stat Exams 09/29/17 12:25 Completed RIBS UNILATERAL Stat Exams 09/29/17 12:26 Completed BLOOD CULTURE Stat Lab 09/29/17 12:55 Received CBC W DIFF Stat Lab 09/29/17 12:55 Completed CMP Stat Lab 09/29/17 12:55 Completed CULTURE,URINE Stat Lab 09/29/17 14:57 Received LIPASE Stat Lab 09/29/17 12:55 Completed Lactic Acid Stat Lab 09/29/17 12:40 Completed Manual Differential NC Stat Lab 09/29/17 12:55 Completed UA W/ MICROSCOPIC Stat Lab 09/29/17 14:57 Completed Urine Triage Profile Stat Lab 09/29/17 14:57 Completed Medication Summary Discontinued Medications Generic Name Dose Route Start Last Admin Trade Name Carol PRN Reason Stop Dose Admin Sodium Chloride 1,000 mls @ 999 mls/hr 09/29/17 12:24 09/29/17 14:32 Sodium Chloride 0.9% 1000 Ml IV 09/29/17 13:24 Infused .Q1H1M STA Infusion Sodium Chloride Confirm 09/29/17 12:33 Sodium Chloride 0.9% 1000 Ml Administered 09/29/17 12:34 Dose 1,000 mls @ ud .ROUTE .STK-MED ONE Ondansetron HCl 4 mg 09/29/17 12:24 09/29/17 12:42 Zofran 4 Mg/2 Ml Vial IV 09/29/17 12:25 4 mg STAT ONE Administration Ondansetron HCl Confirm 09/29/17 12:33 Zofran 4 Mg/2 Ml Vial Administered 09/29/17 12:34 Dose 4 mg .ROUTE .STK-MED ONE Lab/Rad Data: Laboratory Result Diagrams 09/29/17 12:55 09/29/17 12:55 Laboratory Results 09/29/17 09/29/17 09/29/17 Range/Units 14:57 14:57 12:55 WBC (4.0-10.5) K/mm3 RBC (4.1-5.6) M/mm3 Hgb (12.5-18.0) gm/dl Hct (42-50) % MCV (78-100) fl MCH (26-32) pg MCHC (32-36) g/dl RDW (11.5-14.0) % Plt Count (150-450) K/mm3 MPV (6-9.5) fl Segmented Neutrophils (36.-66.) % Band Neutrophils (0.0-2.0) % Lymphocytes (Manual) (24-44) % Monocytes (Manual) (0.0-12.0) % Eosinophils (Manual) (0.00-3.0) % Atypical Lymphocytes % Platelet Estimate (NORMAL) RBC Morphology Sodium 125 L (137-145) mmol/L Potassium 5.3 H (3.5-5.1) mmol/L Chloride 87 L (98-107) mmol/L Carbon Dioxide 25 (22-30) mmol/L Anion Gap 19.4 H (5-15) MEQ/L BUN 179 H (9-20) mg/dL Creatinine 4.02 H (0.66-1.25) mg/dL Estimated GFR 17.7 ML/MIN Glucose 118 H (74-106) mg/dL Lactic Acid (0.4-2.0) Calcium 9.1 (8.4-10.2) mg/dL Total Bilirubin 0.30 (0.2-1.3) mg/dL AST 10 L (17-59) U/L ALT < 4 (0-50) U/L Alkaline Phosphatase 67 (38-126) U/L Serum Total Protein 7.2 (6.3-8.2) g/dL Albumin 4.3 (3.5-5.0) g/dL Lipase 286 (23-300) U/L Ur Collection Type CLEAN CATCH Urine Color YELLOW (YELLOW) Urine Appearance CLEAR (CLEAR) Urine pH 5.0 (5-6) Ur Specific Huntley 1.015 (1.005-1.025) Urine Protein 30 (Negative) Urine Ketones NEGATIVE (NEGATIVE) Urine Blood NEGATIVE (0-5) Wilmer/ul Urine Nitrite NEGATIVE (NEGATIVE) Urine Bilirubin NEGATIVE (NEGATIVE) Urine Urobilinogen NORMAL (0-1) mg/dL Ur Leukocyte Esterase NEGATIVE (NEGATIVE) Urine Microscopic RBC 0-2 (0-2) /HPF Urine Microscopic WBC 0-2 (0-5) /HPF Urine Bacteria MANY (NEGATIVE) /HPF Urine Culture Reflexed YES (NO) Urine Glucose NEGATIVE (NEGATIVE) mg/dL Urine Opiates Level NEGATIVE (NEGATIVE) Ur Methadone NEGATIVE (NEGATIVE) Urine Barbiturates NEGATIVE (NEGATIVE) Ur Phencyclidine (PCP) NEGATIVE (NEGATIVE) Urine Amphetamine NEGATIVE (NEGATIVE) U Benzodiazepine Level POSITIVE (NEGATIVE) Urine Cocaine NEGATIVE (NEGATIVE) Urine Marijuana (THC) NEGATIVE (NEGATIVE) Specimen Received 09/29/17 1445 09/29/17 09/29/17 Range/Units 12:55 12:40 WBC 11.5 H (4.0-10.5) K/mm3 RBC 4.38 (4.1-5.6) M/mm3 Hgb 12.7 (12.5-18.0) gm/dl Hct 36.2 L (42-50) % MCV 82.6 (78-100) fl MCH 29.0 (26-32) pg MCHC 35.1 (32-36) g/dl RDW 13.9 (11.5-14.0) % Plt Count 302 (150-450) K/mm3 MPV 11.1 H (6-9.5) fl Segmented Neutrophils 70 H (36.-66.) % Band Neutrophils 5 H (0.0-2.0) % Lymphocytes (Manual) 13 L (24-44) % Monocytes (Manual) 9 (0.0-12.0) % Eosinophils (Manual) 2 (0.00-3.0) % Atypical Lymphocytes 1 % Platelet Estimate NORMAL (NORMAL) RBC Morphology NORMAL Sodium (137-145) mmol/L Potassium (3.5-5.1) mmol/L Chloride (98-107) mmol/L Carbon Dioxide (22-30) mmol/L Anion Gap (5-15) MEQ/L BUN (9-20) mg/dL Creatinine (0.66-1.25) mg/dL Estimated GFR ML/MIN Glucose (74-106) mg/dL Lactic Acid 0.6 (0.4-2.0) Calcium (8.4-10.2) mg/dL Total Bilirubin (0.2-1.3) mg/dL AST (17-59) U/L ALT (0-50) U/L Alkaline Phosphatase (38-126) U/L Serum Total Protein (6.3-8.2) g/dL Albumin (3.5-5.0) g/dL Lipase (23-300) U/L Ur Collection Type Urine Color (YELLOW) Urine Appearance (CLEAR) Urine pH (5-6) Ur Specific Huntley (1.005-1.025) Urine Protein (Negative) Urine Ketones (NEGATIVE) Urine Blood (0-5) Wilmer/ul Urine Nitrite (NEGATIVE) Urine Bilirubin (NEGATIVE) Urine Urobilinogen (0-1) mg/dL Ur Leukocyte Esterase (NEGATIVE) Urine Microscopic RBC (0-2) /HPF Urine Microscopic WBC (0-5) /HPF Urine Bacteria (NEGATIVE) /HPF Urine Culture Reflexed (NO) Urine Glucose (NEGATIVE) mg/dL Urine Opiates Level (NEGATIVE) Ur Methadone (NEGATIVE) Urine Barbiturates (NEGATIVE) Ur Phencyclidine (PCP) (NEGATIVE) Urine Amphetamine (NEGATIVE) U Benzodiazepine Level (NEGATIVE) Urine Cocaine (NEGATIVE) Urine Marijuana (THC) (NEGATIVE) Specimen Received - Progress Progress: improved Discussed with .: Regla, Other (Dr Lopez at [facility]) Counseled pt/family regarding: lab results, diagnosis, rad results - Departure Time of Disposition: 15:35 Departure Disposition: Transfer (Transfer to [facility] ER per Dr Lopez.) Clinical Impression: Acute renal failure, Hyponatremia, UTI (urinary tract infection), Hyperkalemia , Left rib fracture Condition: Stable Critical Care Time: No Referrals: JUAN LUIS ARCHULETA [Primary Care Provider] -
[2017-09-29] MEDS ORDERED: Zofran 4 MG/2 ML VIAL IV ONE (12:24)
[2017-09-29] MEDS ORDERED: Sodium Chloride 0.9% 1000 ML 1,000 ML IV STA (12:24)
[2017-09-29] MEDS ORDERED: Sodium Chloride 0.9% 1000 ML 1,000 ML ONE (12:33)
[2017-09-29] MEDS ORDERED: Zofran 4 MG/2 ML VIAL ONE (12:33)
[2017-09-29 12:54] LABS: Hematocrit 36.2 % (42-50); Hemoglobin 12.7 gm/dl (12.5-18.0); Mean Cell Volume 82.6 fl (78-100); Mean Corpuscular Hgb Concent. 35.1 g/dl (32-36); Mean Platelet Volume 11.1 fl (6-9.5); Platelet Count 302 K/mm3 (150-450); Red Blood Count 4.38 M/mm3 (4.1-5.6); Red Cell Distribution Width 13.9 % (11.5-14.0); White Blood Count 11.5 K/mm3 (4.0-10.5)
[2017-09-29 13:17] LABS: ATYPICAL LYMPHS 1 %; BAND 5 % (0.0-2.0); Eosinophil 2 % (0.00-3.0); Lymphocytes 13 % (24-44); Monocyte 9 % (0.0-12.0); Neutrophils 70 % (36.-66.); Platelet Estimate NORMAL (NORMAL); Total Cells Counted 100
--- NOTE | 2017-09-29 13:35 | XRAY ---
Indication: Pain following fall. Comparison: August 17, 2017 PA/lateral chest demonstrates new lateral 10th rib acute fracture and new left arm PICC line. Stable remote minimal T5 compression deformity. Remaining heart, lungs, and bony thorax normal.
--- NOTE | 2017-09-29 13:37 | XRAY ---
Indication: Pain following fall. Comparison: None KUB nonobstructed with minimally displaced lateral 10th rib acute fracture. Remaining solid organs and osseous structures unremarkable. Chest reported separately.
--- NOTE | 2017-09-29 13:38 | XRAY ---
Indication: Pain following fall. Comparison: None 2 views of the left ribs demonstrates minimally displaced lateral 10th rib acute fracture, mild AC degenerative arthropathy, and left arm PICC line. No other bony, articular, or soft tissue abnormalities.
[2017-09-29 13:39] LABS: ALBUMIN 4.3 g/dL (3.5-5.0); ALKALINE PHOSPHATASE 67 U/L (38-126); ANION GAP 19.4 MEQ/L (5-15); CHLORIDE 87 mmol/L (98-107); Calcium 9.1 mg/dL (8.4-10.2); Carbon Dioxide 25 mmol/L (22-30); Creatinine 1 4.02 mg/dL (0.66-1.25); Glucose 118 mg/dL (74-106); LIPASE 286 U/L (23-300); Potassium 5.3 mmol/L (3.5-5.1); SGOT/AST 10 U/L (17-59); SODIUM 125 mmol/L (137-145); Total Protein 7.2 g/dL (6.3-8.2)
[2017-09-29 13:51] LABS: BLOOD UREA NITROGEN 179 mg/dL (9-20)
[2017-09-29 13:53] LABS: SGPT/ALT < 4 U/L (0-50)
[2017-09-29 15:05] LABS: Appearance CLEAR (CLEAR); Bilirubin NEGATIVE (NEGATIVE); Blood NEGATIVE Ery/ul (0-5); Glucose NEGATIVE (NEGATIVE); Ketones NEGATIVE (NEGATIVE); Leukocyte Esterase NEGATIVE (NEGATIVE); Nitrite NEGATIVE (NEGATIVE); Protein,Urine Dip 30 (Negative); Specific Gravity 1.015 (1.005-1.025); Urobilinogen NORMAL mg/dL (0-1)
[2017-09-29 15:06] LABS: Bacteria MANY /HPF (NEGATIVE); RBC 0-2 /HPF (0-2); WBC 0-2 /HPF (0-5)
[2017-09-29 15:11] LABS: Amphetamine,Urine NEGATIVE (NEGATIVE); Barbiturate,Urine NEGATIVE (NEGATIVE); Benzodiazepine,Urine POSITIVE (NEGATIVE); Cocaine,Urine NEGATIVE (NEGATIVE); Methadone,Urine NEGATIVE (NEGATIVE); Opiate,Urine NEGATIVE (NEGATIVE); PCP,Urine NEGATIVE (NEGATIVE); THC,Urine NEGATIVE (NEGATIVE)
[2017-09-29 15:41] VITALS: O2SAT 98
[2017-09-29 16:15] VITALS: BP 130/52; PULSE 18
== END 2017-09-29 16:08 | disposition short-term general hospital (02) ==
LOC: ED 11:37
DX: N17.9 Acute kidney failure, unspecified (principal); E87.1 Hypo-osmolality and hyponatremia; N39.0 Urinary tract infection, site not specified; E87.5 Hyperkalemia; S22.32XA Fracture of one rib, left side, initial encounter for closed fracture; R42 Dizziness and giddiness; R11.2 Nausea with vomiting, unspecified; Z79.899 Other long term (current) drug therapy; R53.1 Weakness
CPT/HCPCS: 36415; 71046; 71100; 74018; 80053; 80307; 81000; 83605; 83690; 85025; 87040; 87086; 96360; 96374; 99285; J2405